=== PATIENT | male | born 1980 | race Caucasian/White ===

== ENCOUNTER 2017-04-09 15:32 | Emergency (ER) | payer OTHER ==
[~2017-04-09] VITALS: Ht 190.5 cm; Wt 82.0 kg
[~2017-04-09 15:32] MED LIST: PRLSR20 PO; VENL75CA PO
[2017-04-09 15:46] VITALS: TEMP 36.4; Ht 190.5 cm; Wt 82.0 kg
[2017-04-09] MEDS ORDERED: CHOL100010 PO (15:47)
[2017-04-09] MEDS ORDERED: BENZ-89 PO (15:47)
[2017-04-09] MEDS ORDERED: PRAZ1CAP28 PO (15:47)
[2017-04-09] MEDS ORDERED: NORT25CA PO (15:47)
[2017-04-09] MEDS ORDERED: ONDANSETRON INJ 2 MG/ML 2 ML VIAL IV STA (15:53)
[2017-04-09] MEDS ORDERED: SODIUM CHLORIDE 0.9% 1000ML 1,000 ML IV STA (15:53)
[2017-04-09] MEDS ORDERED: FAMOTIDINE 20MG/5ML IV PUSH IV STA (15:53)
--- NOTE | 2017-04-09 16:12 | EMERGENCY ROOM VISIT NOTE ---
History Report prepared by Hernando: Ubaldo Rivera Under the Supervision of: Dr. Jose Lloyd M.D. First contact with patient: 15:50 Chief Complaint: ABDOMINAL PAIN Stated Complaint: AB PAIN, CHEST PAIN Nursing Triage Summary: HAS HAD LOWER ABD PAIN CONSTANT FOR FEW DAYS SHARP STABBY WITH DIARRHEA AND NAUSE/VOMITING IN AM History of Present Illness The patient is a 36 year old male who presents to the Emergency Room with complaints of worsening/intermittent chest pains. The patient states that he has lower abdominal pain chronically at baseline, and usually attributes it to his irritable bowel syndrome. As of lately the abdominal pain has become worse. He is also experiencing intermittent chest pain. The chest pains are localized in the center of his chest and last 20-30 seconds when they onset. These chest pains began 5-6 days ago. He describes the sensation as a "tightness" or "pressure." He denies any cough or congestion, but claims he has been vomiting and experiencing bouts of diarrhea. He vomits in the morning, before eating at baseline. The patient admits to having PTSD and depression. Source of History: patient Onset: 5-6 days Position: chest, abdomen Timing: intermittent, worsening Associated Symptoms: + vomiting, + diarrhea, No cough Review of Systems See HPI for pertinent positives and negatives. A total of ten systems were reviewed and were otherwise negative. Past Medical & Surgical Medical Problems: (1) PTSD (post-traumatic stress disorder) Surgical Problems: (1) [place] teeth extracted Family History Diabetes mellitus Social History Smoking Status: Former Smoker Alcohol Use: occasionally Marital Status: Housing Status: lives with family Occupation Status: employed Current/Historical Medications Scheduled Benztropine Mesylate (Cogentin), Unknown Dose PO BID Biotin (Biotin), 1 CAP PO DAILY Cholecalciferol (Vitamin D), 2,000 UNITS PO DAILY Fluoxetine Hcl (Pmdd) (Fluoxetine), 1 CAP PO DAILY Gabapentin (Neurontin), 300 MG PO HS Nortriptyline Hcl (Pamelor), 20 MG PO HS Ondasetron Odt (Zofran Odt), 4 MG SL Q6H Prazosin Hcl (Prazosin), 10 MG PO HS Propranolol (Inderal), 5 MG PO BID Allergies Coded Allergies: No Known Allergies (Unverified , 04/09/17) Physical Exam Vital Signs Date Time Temp Pulse Resp B/P (MAP) Pulse Ox O2 Delivery O2 Flow Rate FiO2 04/09/17 18:10 47 16 117/68 98 04/09/17 17:34 49 16 140/69 96 Room Air 04/09/17 17:32 43 04/09/17 15:46 36.4 54 16 137/67 99 Room Air Physical Exam GENERAL: Awake, alert, anxious, appearing, in no distress HENT: Normocephalic, atraumatic. Dry mucous membranes. EYES: Normal conjunctiva. Sclera non-icteric. NECK: Supple. No nuchal rigidity. FROM. No JVD. RESPIRATORY: Clear to auscultation. CARDIAC: Regular rate, normal rhythm. Extremities warm and well perfused. Pulses equal. ABDOMEN: Soft, non-distended. Generalized abdominal tenderness to palpation, no peritoneal signs. No rebound or guarding. No masses. RECTAL: Deferred. MUSCULOSKELETAL: Chest examination reveals no tenderness. The back is symmetrical on inspection without obvious abnormality. There is no CVA tenderness to palpation. No joint edema. LOWER EXTREMITIES: Calves are equal size bilaterally and non-tender. No edema. No discoloration. NEURO: Normal sensorium. No sensory or motor deficits noted. SKIN: No rash or jaundice noted. Medical Decision & Procedures ER Provider Diagnostic Interpretation: Radiology results as stated below per my review and radiologist interpretation: CHEST ONE VIEW PORTABLE HISTORY: Atypical chest pain. COMPARISON: None. FINDINGS: The lungs are clear. Cardiac silhouette is normal in size. No pleural effusions. No pneumothorax. IMPRESSION: No acute process. Electronically signed by: Emery Alcaraz M.D. 04/09/2017 4:23 PM Dictated Date/Time: 04/09/2017 4:22 PM Laboratory Results 04/09/17 16:08 Red Blood Count 4.67, Mean Corpuscular Volume 83.1, Mean Corpuscular Hemoglobin 27.6, Mean Corpuscular Hemoglobin Concent 33.2, Mean Platelet Volume 10.9, Neutrophils (%) (Auto) 69.2, Lymphocytes (%) (Auto) 21.8, Monocytes (%) (Auto) 8.1, Eosinophils (%) (Auto) 0.7, Basophils (%) (Auto) 0.1, Neutrophils # (Auto) 5.31, Lymphocytes # (Auto) 1.67, Monocytes # (Auto) 0.62, Eosinophils # (Auto) 0.05, Basophils # (Auto) 0.01 04/09/17 16:08 Test 04/09/17 16:00 04/09/17 16:08 04/09/17 16:45 Influenza Type A (RT-PCR) Neg for Influ A (NEG) Influenza Type B (RT-PCR) Neg for Influ B (NEG) White Blood Count 7.67 K/uL (4.8-10.8) Red Blood Count 4.67 M/uL (4.7-6.1) Hemoglobin 12.9 g/dL (14.0-18.0) Hematocrit 38.8 % (42-52) Mean Corpuscular Volume 83.1 fL (80-100) Mean Corpuscular Hemoglobin 27.6 pg (25-34) Mean Corpuscular Hemoglobin Concent 33.2 g/dl (32-36) Platelet Count 231 K/uL (130-400) Mean Platelet Volume 10.9 fL (7.4-10.4) Neutrophils (%) (Auto) 69.2 % Lymphocytes (%) (Auto) 21.8 % Monocytes (%) (Auto) 8.1 % Eosinophils (%) (Auto) 0.7 % Basophils (%) (Auto) 0.1 % Neutrophils # (Auto) 5.31 K/uL (1.4-6.5) Lymphocytes # (Auto) 1.67 K/uL (1.2-3.4) Monocytes # (Auto) 0.62 K/uL (0.11-0.59) Eosinophils # (Auto) 0.05 K/uL (0-0.5) Basophils # (Auto) 0.01 K/uL (0-0.2) RDW Standard Deviation 42.2 fL (36.4-46.3) RDW Coefficient of Variation 13.9 % (11.5-14.5) Immature Granulocyte % (Auto) 0.1 % Immature Granulocyte # (Auto) 0.01 K/uL (0.00-0.02) Erythrocyte Sedimentation Rate 2 mm/hr (0-14) Anion Gap 5.0 mmol/L (3-11) Est Creatinine Clear Calc Drug Dose 107.6 ml/min Estimated GFR () 100.0 Estimated GFR (Non- 86.3 BUN/Creatinine Ratio 4.9 (10-20) Lactic Acid Level 1.2 mmol/L (0.4-2.0) Calcium Level 9.2 mg/dl (8.5-10.1) Total Bilirubin 0.6 mg/dl (0.2-1) Direct Bilirubin 0.1 mg/dl (0-0.2) Aspartate Amino Transf (AST/SGOT) 12 U/L (15-37) Alanine Aminotransferase (ALT/SGPT) 21 U/L (12-78) Alkaline Phosphatase 107 U/L (45-117) Troponin I < 0.015 ng/ml (0-0.045) C-Reactive Protein < 0.29 mg/dl (0-0.29) Total Protein 7.4 gm/dl (6.4-8.2) Albumin 4.0 gm/dl (3.4-5.0) Lipase 197 U/L (73-393) Urine Color YELLOW Urine Appearance CLEAR (CLEAR) Urine pH 8.5 (4.5-7.5) Urine Specific [place] 1.009 (1.000-1.030) Urine Protein NEG (NEG) Urine Glucose (UA) NEG (NEG) Urine Ketones TRACE (NEG) Urine Occult Blood NEG (NEG) Urine Nitrite NEG (NEG) Urine Bilirubin NEG (NEG) Urine Urobilinogen NEG (NEG) Urine Leukocyte Esterase NEG (NEG) Laboratory results reviewed by me Medications Administered Medications (Trade) Dose Ordered Sig/Lucy Route Start Time Stop Time Status Last Admin Dose Admin Sodium Chloride 1,000 ml @ 999 mls/hr Q1H1M STAT IV 04/09/17 15:53 04/09/17 16:53 DC 04/09/17 16:16 999 MLS/HR Ondansetron HCl (Zofran Inj) 4 mg NOW STAT IV 04/09/17 15:53 04/09/17 15:59 DC 04/09/17 16:17 4 MG Famotidine (Pepcid 20mg Iv Push) 20 mg NOW STAT IV 04/09/17 15:53 04/09/17 15:59 DC 04/09/17 16:16 20 MG ECG Indication: abdominal pain, chest pain Rate (beats per minute): 49 Rhythm: sinus bradycardia Findings: no acute ischemic change, other (Normal axis) Change: Patient's electrocardiogram interpreted by me. ED Course 1552: The patient was evaluated in room B4B. A complete history and physical exam was performed. 1553: Ordered Famotidine 20 mg IV, Zofran 4 mg IV, Sodium Chloride 1000 mL @ 999 mL/hr IV. Medical Decision I reviewed the patient's past medical history, medications, and the nursing notes as described above. Differential diagnosis: Etiologies such as anxiety, depression, appendicitis, diverticulitis, PUD, biliary pathology, UTI, pancreatitis, obstruction, mesenteric ischemia, aortic pathology, infections, inflammatory bowel disease, IBS, renal colic, cardiac ischemia, aortic dissection, pulmonary embolism, pneumonia, pneumothorax, musculoskeletal, infections, pericarditis, myocarditis, esophageal rupture, as well as others were entertained. The patient is a 36-year-old gentleman with a past medical history of PTSD, IBS who presents emergency Department complaining of constant chest pain and lower abdominal pain with associated nausea and diarrhea for the past 5 days per hpi. Arrival the patient is in no acute distress, afebrile stable vital signs. His generalized abdominal discomfort but no discrete tenderness or peritoneal signs. Labs unremarkable including wbc, lactate, ESR. CRP wnl. Trop negative in the setting of 5 days of sx. EKG unremarkable. Unlikely cardiac etiology. CXR negative. Given reassuring lab work and relatively benign exam no indication for imaging at this time. Sx most likely c/w viral gastroenteritis. Plan for pcp f/u. Findings and plan for follow-up reviewed with patient. Patient agreeable and d/c'd per discharge instructions. Impression Primary Impression: Substernal chest pain Additional Impressions: Lower abdominal pain Acute gastroenteritis Scribe Attestation The scribe's documentation has been prepared under my direction and personally reviewed by me in its entirety. I confirm that the note above accurately reflects all work, treatment, procedures, and medical decision making performed by me. Departure Information Dispostion Home / Self-Care Prescriptions Ondasetron Odt (ZOFRAN ODT) 4 Mg Tab 4 MG SL Q6H for Nausea, #10 TAB Prov: Jose Lloyd M.D. 04/09/17 Referrals No Doctor, Assigned (PCP) Patient Instructions ED Abdominal Pain Unkn Cause Male, ED Chest Pain Atypical Unkn Cause, ED Gastroenteritis Viral, My [facility] Additional Instructions Please follow up with your primary care physician in the next 1-3 days for re- evaluation. The cause of your symptoms is unclear at this time. Otherwise, your exam, EKG, chest xray, and lab results did not show signs of an emergent condition at this time. Acetaminophen or ibuprofen for pain and fevers as needed. Drink plenty of fluids to ensure hydration. Return to the emergency department for worsening symptoms as described in the accompanying instructions. Problem Qualifiers
[2017-04-09 16:21] LABS: BASO % 0.1 %; BASO ABS # 0.01 K/uL (0-0.2); EOS % 0.7 %; EOS ABS # 0.05 K/uL (0-0.5); HEMATOCRIT 38.8 % (42-52); HEMOGLOBIN 12.9 g/dL (14.0-18.0); IG# 0.01 K/uL (0.00-0.02); LYMPH % 21.8 %; LYMPH ABS # 1.67 K/uL (1.2-3.4); MEAN CELL VOLUME 83.1 fL (80-100); MEAN CORPUSCULAR HEMOGLOBIN 27.6 pg (25-34); MEAN CORPUSCULAR HGB CONC 33.2 g/dl (32-36); MEAN PLATELET VOLUME 10.9 fL (7.4-10.4); MONO % 8.1 %; MONO ABS # 0.62 K/uL (0.11-0.59); NEUT % 69.2 %; NEUT ABS # 5.31 K/uL (1.4-6.5); PLATELET COUNT 231 K/uL (130-400); RED CELL DISTRIBUTION WIDTH CV 13.9 % (11.5-14.5); RED CELL DISTRIBUTION WIDTH SD 42.2 fL (36.4-46.3); WHITE BLOOD COUNT 7.67 K/uL (4.8-10.8)
--- NOTE | 2017-04-09 16:24 | DIAGNOSTIC IMAGING REPORT ---
CHEST ONE VIEW PORTABLE HISTORY: Atypical chest pain. COMPARISON: None. FINDINGS: The lungs are clear. Cardiac silhouette is normal in size. No pleural effusions. No pneumothorax. IMPRESSION: No acute process. Electronically signed by: Emery Alcaraz M.D. 04/09/2017 4:23 PM Dictated Date/Time: 04/09/2017 4:22 PM
[2017-04-09] MEDS ORDERED: GABA-113 PO (16:39)
[2017-04-09] MEDS ORDERED: NORT10CA PO (16:39)
[2017-04-09] MEDS ORDERED: FLUO20CA20 PO (16:39)
[2017-04-09] MEDS ORDERED: PROP10TA7 PO (16:39)
[2017-04-09] MEDS ORDERED: PRAZ5CAP2 PO (16:39)
[2017-04-09] MEDS ORDERED: BIOT1CAP8 PO (16:39)
[2017-04-09 16:40] LABS: ALT/SGPT 21 U/L (12-78); AST/SGOT 12 U/L (15-37); BLOOD UREA NITROGEN 5 mg/dl (7-18); CALCIUM 9.2 mg/dl (8.5-10.1); CARBON DIOXIDE 29 mmol/L (21-32); CREATININE 1.09 mg/dl (0.60-1.40); GLUCOSE 94 mg/dl (70-99); LIPASE 197 U/L (73-393); POTASSIUM 3.5 mmol/L (3.5-5.1); SODIUM 142 mmol/L (136-145)
[2017-04-09 16:45] LABS: ALKALINE PHOSPHATASE 107 U/L (45-117); TOTAL PROTEIN 7.4 gm/dl (6.4-8.2)
[2017-04-09 17:42] LABS: INFLUENZA A PCR Neg for Influ A (NEG); INFLUENZA B PCR Neg for Influ B (NEG)
[2017-04-09] MEDS ORDERED: ONDA4TAB10 SL (17:57)
[2017-04-09 18:10] VITALS: BP 117/68; PULSE 47; O2SAT 98
== END 2017-04-09 18:10 | disposition home or self-care (01) ==
LOC: EDBD 15:32 → C.EDB 15:33
DX: R07.2 Precordial pain (principal); R10.30 Lower abdominal pain, unspecified; K52.9 Noninfective gastroenteritis and colitis, unspecified; R00.1 Bradycardia, unspecified; K58.9 Irritable bowel syndrome, unspecified; F43.10 Post-traumatic stress disorder, unspecified; F32.9 Major depressive disorder, single episode, unspecified; Z87.891 Personal history of nicotine dependence; Z83.3 Family history of diabetes mellitus